=== PATIENT | female | born 1985 | race African-American/Black ===

== ENCOUNTER 2016-06-21 09:48 | Emergency (ER) | payer OTHER ==
[~2016-06-21] VITALS: Ht 160 cm; Wt 95.4 kg
[2016-06-21] MEDS ORDERED: RISP4 PO (09:53)
[2016-06-21] MEDS ORDERED: CITA20TA9 PO (09:53)
[2016-06-21] MEDS ORDERED: TRAZ-147 PO (09:53)
[2016-06-21] MEDS ORDERED: LORazepam 1 MG TABLET PO ONE (12:30)
[2016-06-21 14:10] VITALS: BP 125/71
== END 2016-06-21 14:55 | disposition home or self-care (01) ==
LOC: EMS 09:50
DX: F41.9 Anxiety disorder, unspecified (principal); F32.9 Major depressive disorder, single episode, unspecified
CPT/HCPCS: 99284

== ENCOUNTER 2018-06-14 01:45 | Emergency (ER) | payer OTHER ==
[~2018-06-14] VITALS: Ht 167.6 cm; Wt 81.8 kg
[~2018-06-14 01:45] MED LIST: CITA-106 PO; RISP4 PO; TRAZ-220 PO
[2018-06-14 01:52] VITALS: BP 131/96
[2018-06-14] MEDS ORDERED: OLAN10TA3 PO (02:07)
[2018-06-14] MEDS ORDERED: LURA20TA PO (02:07)
[2018-06-14 03:31] LABS: AMPHET/METH SCREEN,URINE POSITIVE (NEGATIVE); BARBITURATE SCREEN, URINE NEGATIVE (NEGATIVE); BENZODIAZEPINES SCREEN,URINE NEGATIVE (NEGATIVE); CANNABINOID SCREEN,URINE POSITIVE (NEGATIVE); COCAINE SCREEN,URINE NEGATIVE (NEGATIVE); METHADONE SCREEN, URINE NEGATIVE (NEGATIVE); OPIATE SCREEN,URINE NEGATIVE (NEGATIVE); PHENCYCLIDINE SCREEN,URINE NEGATIVE (NEGATIVE)
== END 2018-06-14 02:37 | disposition home or self-care (01) ==
LOC: EMS 01:47
DX: F32.9 Major depressive disorder, single episode, unspecified (principal); F41.9 Anxiety disorder, unspecified

== ENCOUNTER 2019-03-24 22:33 | Emergency (ER) | payer MEDICAID, OTHER ==
[~2019-03-24] VITALS: Ht 167.6 cm; Wt 101.5 kg
[~2019-03-24 22:33] MED LIST changes: -CITA-106 PO; +LURA20TA PO; +OLAN10TA3 PO; -RISP4 PO; -TRAZ-220 PO
[2019-03-24] MEDS ORDERED: SODIUM CHLORIDE 0.9% 1,000 ML IV ONE (23:15)
[2019-03-24] MEDS ORDERED: PB/HYOSCY/ATR/SCOP/LIDO/MAALOX 55 ML BOTTLE PO ONE (23:15)
[2019-03-24] MEDS ORDERED: FAMOTIDINE 10 MG/ML 2 ML VIAL IVP ONE (23:15)
[2019-03-24 23:31] LABS: BASOPHILS % (AUTO) 1.1 % (0.0-2.0); EOSINOPHILS % (AUTO) 2.7 % (1.0-6.0); HEMATOCRIT 36.6 % (36-46); HEMOGLOBIN 11.6 g/dL (12.0-16.0); LYMPHOCYTES # (AUTO) 3.3 K/uL (1.0-4.8); LYMPHOCYTES % (AUTO) 38.3 % (22.0-44.0); MEAN CORPUSCULAR HEMOGLOBIN 24.9 pg (26.0-34.0); MEAN CORPUSCULAR HGB CONC 31.7 G/dL (31.0-37.0); MEAN CORPUSCULAR VOLUME 79 fL (80-100); MONOCYTES # (AUTO) 0.8 K/uL (0.1-1.0); NEUTROPHILS # (AUTO) 4.1 K/uL (1.8-7.7); NEUTROPHILS % (AUTO) 47.9 % (40.0-70.0); PLATELET COUNT (AUTO) 280 K/uL (150-450); RED BLOOD CELL COUNT(AUTO) 4.65 MIL/uL (4.00-5.20); RED CELL DISTRIBUTION WIDTH 17.4 % (11.5-14.5)
[2019-03-24 23:48] LABS: ANION GAP 12 mmol/L (8-16); CALCIUM, TOTAL 9.3 mg/dL (8.8-10.5); CARBON DIOXIDE 25 mmol/L (22-29); CHLORIDE 107 mmol/L (98-107); GLOMERULAR FILTR. RATE CALC > 60 mL/min (>60); GLUCOSE,RANDOM 86 mg/dL (70-110); POTASSIUM 3.6 mmol/L (3.5-5.1); SODIUM SERUM 144 mmol/L (136-145); UREA NITROGEN, BLOOD 8 mg/dL (7-18)
[2019-03-24 23:54] LABS: ALANINE AMINOTRANSFERASE 25 U/L (12-78); ALBUMIN 3.5 g/dL (3.4-5.0); ALKALINE PHOSPHATASE 68 U/L (46-116); ASPARTATE AMINOTRANSFERASE 25 U/L (15-37); BILIRUBIN,TOTAL 0.2 mg/dL (0.1-1.0); LIPASE 202 U/L (73-393)
[2019-03-25 05:03] VITALS: BP 112/68
== END 2019-03-25 05:06 | disposition home or self-care (01) ==
LOC: EMS 22:35
DX: F32.9 Major depressive disorder, single episode, unspecified (principal); F41.9 Anxiety disorder, unspecified; Z79.899 Other long term (current) drug therapy

== ENCOUNTER 2020-04-17 10:44 | Inpatient (IN) | payer MEDICAID ==
[2020-04-17] MEDS ORDERED: ZOLPIDEM TARTRATE 10 MG TABLET PO PRN (11:00)
[2020-04-17] MEDS ORDERED: HALOPERIDOL 5 MG TABLET PO PRN (11:00)
[2020-04-17] MEDS ORDERED: GuaiFENesin/D-METHORPHAN [SUGAR-FREE] 200-20MG/10 ML SYRUP UDCUP PO PRN (16:15)
[2020-04-17] MEDS ORDERED: CloNIDine HCL 0.1 MG TABLET PO PRN (16:15)
[2020-04-17] MEDS ORDERED: ONDANSETRON HCL 4 MG TABLET PO PRN (16:15)
[2020-04-17] MEDS ORDERED: ACETAMINOPHEN 325 MG TABLET PO PRN (16:15)
[2020-04-17] MEDS ORDERED: PETROLATUM,WHITE 28 GM JELLY TP PRN (16:15)
[2020-04-17] MEDS ORDERED: IBUPROFEN 400 MG TABLET PO PRN (16:15)
[2020-04-17] MEDS ORDERED: MAGNESIUM HYDROXIDE SUSPENSION 30 ML UDCUP PO PRN (16:15)
[2020-04-17] MEDS ORDERED: MAG HYDROX/AL HYDROX/SIMETH ES 30 ML SUSPENSION UDCUP PO PRN (16:15)
[2020-04-17] MEDS ORDERED: DOCUSATE SODIUM 100 MG CAPSULE PO PRN (16:15)
[2020-04-17] MEDS ORDERED: LOPERAMIDE HCL 2 MG CAPSULE PO PRN (16:15)
[2020-04-17] MEDS ORDERED: NICOTINE 14 MG/24 HOUR PATCH TD PRN (16:15)
[2020-04-17] MEDS ORDERED: ALBUTEROL SULFATE HFA 90 MCG/PUFF 8 GM INHALER IH PRN (16:15)
[2020-04-17 16:37] VITALS: BP 116/77
[2020-04-17] MEDS: LORazepam 2 MG TABLET PO PRN (21:09)
[2020-04-18 05:58] VITALS: BP 129/65
[2020-04-18 08:18] LABS: BASOPHILS % (AUTO) 0.7 % (0.0-2.0); EOSINOPHILS % (AUTO) 7.8 % (1.0-6.0); HEMATOCRIT 38.1 % (36-46); HEMOGLOBIN 12.2 g/dL (12.0-16.0); LYMPHOCYTES # (AUTO) 2.1 K/uL (1.0-4.8); LYMPHOCYTES % (AUTO) 35.4 % (22.0-44.0); MEAN CORPUSCULAR HEMOGLOBIN 25.6 pg (26.0-34.0); MEAN CORPUSCULAR VOLUME 80 fL (80-100); MONOCYTES # (AUTO) 0.5 K/uL (0.1-1.0); MONOCYTES % (AUTO) 8.5 % (2.0-9.0); NEUTROPHILS # (AUTO) 2.8 K/uL (1.8-7.7); NEUTROPHILS % (AUTO) 47.6 % (40.0-70.0); PLATELET COUNT (AUTO) 270 K/uL (150-450); RED BLOOD CELL COUNT(AUTO) 4.75 MIL/uL (4.00-5.20); RED CELL DISTRIBUTION WIDTH 15.3 % (11.5-14.5)
[2020-04-18 08:30] LABS: HEMOGLOBIN A1C 5.7 % (3.8-5.6)
[2020-04-18 08:40] VITALS: BP 136/89
[2020-04-18 09:03] LABS: ALANINE AMINOTRANSFERASE 20 U/L (12-78); ALBUMIN 3.6 g/dL (3.4-5.0); ALKALINE PHOSPHATASE 69 U/L (46-116); ANION GAP 12 mmol/L (8-16); ASPARTATE AMINOTRANSFERASE 24 U/L (15-37); BILIRUBIN,TOTAL 0.4 mg/dL (0.1-1.0); CALCIUM, TOTAL 9.3 mg/dL (8.8-10.5); CARBON DIOXIDE 23 mmol/L (22-29); CHLORIDE 103 mmol/L (98-107); CHOL/HDL RATIO 4.3 (3.9-5.7); CHOLESTEROL 234 mg/dL (131-200); CREATININE 0.85 mg/dL (0.60-1.30); FREE T4 (FREE THYROXINE) 1.23 ng/dL (0.76-1.46); GLOMERULAR FILTR. RATE CALC > 60 mL/min (>60); GLUCOSE,RANDOM 71 mg/dL (70-110); HCG,QUANTITATIVE 3 mIU/mL (0-6); HDL CHOLESTEROL 55 mg/dL (40-60); LDL CHOL (CALC.) 164 mg/dL (0-130); POTASSIUM 3.8 mmol/L (3.5-5.1); SODIUM SERUM 138 mmol/L (136-145); THYROID STIMULATING HORMONE 1.13 uIU/mL (0.36-3.74); TOTAL PROTEIN, SERUM 8.2 g/dL (6.4-8.2); TRIGLYCERIDES 77 mg/dL (15-150); UREA NITROGEN, BLOOD 7 mg/dL (7-18)
[2020-04-18] MEDS: SERTRALINE HCL 50 MG TABLET PO SCH (12:24)
[2020-04-18] MEDS: OLANZapine 10 MG TABLET PO SCH (12:24)
[2020-04-18 16:15] VITALS: BP 146/89
[2020-04-18] MEDS: LORazepam 2 MG TABLET PO PRN (18:24)
[2020-04-19 00:27] VITALS: BP 123/70
[2020-04-19 08:34] VITALS: BP 146/92
[2020-04-19] MEDS: SERTRALINE HCL 50 MG TABLET PO SCH (08:47)
[2020-04-19] MEDS: OLANZapine 10 MG TABLET PO SCH (08:52)
[2020-04-19 17:34] VITALS: BP 125/79
[2020-04-19] MEDS ORDERED: OLANZapine 10 MG TABLET PO SCH (21:00)
[2020-04-20 06:23] VITALS: BP 116/74
[2020-04-20] MEDS: SERTRALINE HCL 50 MG TABLET PO SCH (08:18)
[2020-04-20 08:30] VITALS: BP 135/90
[2020-04-20] MEDS ORDERED: OLAN10TA3 PO (11:46)
[2020-04-20] MEDS ORDERED: SERT-158 PO (11:56)
== END 2020-04-20 12:30 | disposition home or self-care (01) | DRG 751 ==
LOC: B2S 12:47
PROVIDERS: ADMIT Psychiatry & Neurology Child & Adolescent Psychiatry; ATTEND Psychiatry & Neurology Child & Adolescent Psychiatry
DX: F33.2 Major depressive disorder, recurrent severe without psychotic features (principal); F15.10 Other stimulant abuse, uncomplicated; E78.5 Hyperlipidemia, unspecified; F41.9 Anxiety disorder, unspecified; R10.13 Epigastric pain; F10.10 Alcohol abuse, uncomplicated; Z79.899 Other long term (current) drug therapy
CPT/HCPCS: 83036; 84436; 84439; 84443

== ENCOUNTER 2020-06-23 21:18 | Emergency (ER) | payer MEDICAID ==
[~2020-06-23] VITALS: Ht 167.6 cm; Wt 11.4 kg
[~2020-06-23 21:18] MED LIST changes: -LURA20TA PO; +SERT-158 PO
[2020-06-23 22:03] LABS: COVID AG,FIA SOURCE NASOPHARYNGEAL
[2020-06-23 22:14] LABS: AMPHET/METH SCREEN,URINE POSITIVE (NEGATIVE); BARBITURATE SCREEN, URINE NEGATIVE (NEGATIVE); BENZODIAZEPINES SCREEN,URINE NEGATIVE (NEGATIVE); CANNABINOID SCREEN,URINE POSITIVE (NEGATIVE); COCAINE SCREEN,URINE NEGATIVE (NEGATIVE); METHADONE SCREEN, URINE NEGATIVE (NEGATIVE); OPIATE SCREEN,URINE NEGATIVE (NEGATIVE)
[2020-06-23 22:16] LABS: PHENCYCLIDINE SCREEN,URINE NEGATIVE (NEGATIVE)
[2020-06-23 23:40] VITALS: BP 122/84
== END 2020-06-24 00:07 | disposition home or self-care (01) ==
LOC: EMS 21:20
DX: F32.9 Major depressive disorder, single episode, unspecified (principal); F41.9 Anxiety disorder, unspecified; Z20.822 Contact with and (suspected) exposure to COVID-19
CPT/HCPCS: 84703; 87426; 99284

== ENCOUNTER 2020-09-12 00:59 | Emergency (ER) | payer MEDICAID ==
[~2020-09-12] VITALS: Ht 167.6 cm; Wt 104.5 kg
[~2020-09-12 00:59] MED LIST changes: -OLAN10TA3 PO; +OLAN10TA74 PO
[2020-09-12 02:21] LABS: COVID AG,FIA SOURCE NASOPHARYNGEAL
[2020-09-12 02:23] LABS: BASOPHILS % (AUTO) 0.9 % (0.0-2.0); EOSINOPHILS % (AUTO) 3.1 % (1.0-6.0); HEMATOCRIT 37.3 % (36-46); HEMOGLOBIN 11.9 g/dL (12.0-16.0); LYMPHOCYTES # (AUTO) 2.2 K/uL (1.0-4.8); LYMPHOCYTES % (AUTO) 37.7 % (22.0-44.0); MEAN CORPUSCULAR VOLUME 78 fL (80-100); MONOCYTES # (AUTO) 0.8 K/uL (0.1-1.0); MONOCYTES % (AUTO) 14.6 % (2.0-9.0); NEUTROPHILS # (AUTO) 2.5 K/uL (1.8-7.7); NEUTROPHILS % (AUTO) 43.7 % (40.0-70.0); PLATELET COUNT (AUTO) 274 K/uL (150-450); RED BLOOD CELL COUNT(AUTO) 4.77 MIL/uL (4.00-5.20); RED CELL DISTRIBUTION WIDTH 16.6 % (11.5-14.5)
[2020-09-12 02:46] LABS: APPEARANCE,URINE CLEAR (CLEAR); GLUCOSE, URINE (UA) NEGATIVE (NEGATIVE); KETONES,URINE TRACE mg/dL (NEGATIVE); LEUKOCYTE ESTERASE ,URINE NEGATIVE (NEGATIVE); NITRATE,URINE NEGATIVE (NEGATIVE); OCCULT BLOOD,URINE NEGATIVE (NEGATIVE); PROTEIN,URINE TRACE (NEGATIVE)
[2020-09-12 02:50] LABS: AMPHET/METH SCREEN,URINE NEGATIVE (NEGATIVE); BARBITURATE SCREEN, URINE NEGATIVE (NEGATIVE); BENZODIAZEPINES SCREEN,URINE NEGATIVE (NEGATIVE); BILIRUBIN,URINE PRELIM. POSITIVE (NEGATIVE); CANNABINOID SCREEN,URINE POSITIVE (NEGATIVE); COCAINE SCREEN,URINE NEGATIVE (NEGATIVE); METHADONE SCREEN, URINE NEGATIVE (NEGATIVE); OPIATE SCREEN,URINE NEGATIVE (NEGATIVE)
[2020-09-12 02:51] LABS: PHENCYCLIDINE SCREEN,URINE NEGATIVE (NEGATIVE)
[2020-09-12 02:54] LABS: ALANINE AMINOTRANSFERASE 37 U/L (12-78); ALBUMIN 3.7 g/dL (3.4-5.0); ALKALINE PHOSPHATASE 94 U/L (46-116); ANION GAP 8 mmol/L (8-16); ASPARTATE AMINOTRANSFERASE 34 U/L (15-37); BILIRUBIN,TOTAL 0.3 mg/dL (0.1-1.0); CALCIUM, TOTAL 9.3 mg/dL (8.8-10.5); CARBON DIOXIDE 27 mmol/L (22-29); CHLORIDE 102 mmol/L (98-107); CREATININE 0.76 mg/dL (0.60-1.30); GLOMERULAR FILTR. RATE CALC > 60 mL/min (>60); GLUCOSE,RANDOM 92 mg/dL (70-110); HCG,QUANTITATIVE < 1 mIU/mL (0-6); SODIUM SERUM 137 mmol/L (136-145); UREA NITROGEN, BLOOD 9 mg/dL (7-18)
[2020-09-12 03:00] LABS: BACTERIA,URINE Few /HPF (None Seen); MUCUS,URINE Moderate LPF (None Seen); RBC,URINE 0-2 /HPF (0-2); SQUAMOUS EPITHELIAL CELL,UR Many /LPF (None Seen); WBC,URINE 0-2 /HPF (0-5)
[2020-09-12] MEDS ORDERED: POTASSIUM CHLORIDE 20 MEQ ER TABLET PO ONE (03:15)
[2020-09-12 03:45] VITALS: BP 128/85
== END 2020-09-12 03:51 ==
LOC: EMS 01:01
DX: F41.9 Anxiety disorder, unspecified (principal); F32.9 Major depressive disorder, single episode, unspecified; Z79.899 Other long term (current) drug therapy; Z20.822 Contact with and (suspected) exposure to COVID-19
CPT/HCPCS: 36415; 80053; 80307; 81001; 84702; 85025; 87426; 99283; G0480

== ENCOUNTER 2020-10-11 15:51 | Inpatient (IN) | payer MEDICAID ==
[~2020-10-11] VITALS: Ht 165.1 cm; Wt 51.9 kg
[2020-10-11] MEDS ORDERED: HALOPERIDOL 5 MG TABLET PO PRN (16:45)
[2020-10-11] MEDS ORDERED: LORazepam 2 MG TABLET PO PRN (16:45)
[2020-10-11] MEDS ORDERED: ZOLPIDEM TARTRATE 10 MG TABLET PO PRN (16:45)
[2020-10-11 17:03] LABS: GLUCOMETER DEV NAME(LOC) POC.BV
[2020-10-11 17:38] VITALS: BP 88/44
[2020-10-11] MEDS: OLANZapine 10 MG TABLET PO SCH (20:25)
[2020-10-11 21:43] VITALS: BP 135/76
[2020-10-12 06:18] VITALS: BP 142/89
[2020-10-12 08:11] LABS: BASOPHILS % (AUTO) 0.7 % (0.0-2.0); EOSINOPHILS % (AUTO) 6.6 % (1.0-6.0); HEMATOCRIT 38.3 % (36-46); HEMOGLOBIN 12.1 g/dL (12.0-16.0); LYMPHOCYTES # (AUTO) 3.1 K/uL (1.0-4.8); MEAN CORPUSCULAR HEMOGLOBIN 25.1 pg (26.0-34.0); MEAN CORPUSCULAR HGB CONC 31.6 G/dL (31.0-37.0); MEAN CORPUSCULAR VOLUME 80 fL (80-100); MONOCYTES # (AUTO) 0.4 K/uL (0.1-1.0); MONOCYTES % (AUTO) 7.4 % (2.0-9.0); NEUTROPHILS # (AUTO) 1.7 K/uL (1.8-7.7); NEUTROPHILS % (AUTO) 30.3 % (40.0-70.0); PLATELET COUNT (AUTO) 251 K/uL (150-450); RED BLOOD CELL COUNT(AUTO) 4.82 MIL/uL (4.00-5.20); RED CELL DISTRIBUTION WIDTH 17.5 % (11.5-14.5)
[2020-10-12 08:21] LABS: HEMOGLOBIN A1C 5.6 % (3.8-5.6)
[2020-10-12 08:24] VITALS: BP 137/83
[2020-10-12] MEDS ORDERED: MAG HYDROX/AL HYDROX/SIMETH ES 30 ML SUSPENSION UDCUP PO PRN (08:30)
[2020-10-12] MEDS ORDERED: ALBUTEROL SULFATE HFA 90 MCG/PUFF 8 GM INHALER IH PRN (08:30)
[2020-10-12] MEDS ORDERED: IBUPROFEN 400 MG TABLET PO PRN (08:30)
[2020-10-12] MEDS ORDERED: GuaiFENesin/D-METHORPHAN [SUGAR-FREE] 200-20MG/10 ML SYRUP UDCUP PO PRN (08:30)
[2020-10-12] MEDS ORDERED: ONDANSETRON HCL 4 MG TABLET PO PRN (08:30)
[2020-10-12] MEDS ORDERED: CloNIDine HCL 0.1 MG TABLET PO PRN (08:30)
[2020-10-12] MEDS ORDERED: PETROLATUM,WHITE 28 GM JELLY TP PRN (08:30)
[2020-10-12] MEDS ORDERED: NICOTINE 14 MG/24 HOUR PATCH TD PRN (08:30)
[2020-10-12] MEDS ORDERED: ACETAMINOPHEN 325 MG TABLET PO PRN (08:30)
[2020-10-12] MEDS ORDERED: LOPERAMIDE HCL 2 MG CAPSULE PO PRN (08:30)
[2020-10-12] MEDS ORDERED: DOCUSATE SODIUM 100 MG CAPSULE PO PRN (08:30)
[2020-10-12] MEDS ORDERED: MAGNESIUM HYDROXIDE SUSPENSION 30 ML UDCUP PO PRN (08:30)
[2020-10-12] MEDS: SERTRALINE HCL 50 MG TABLET PO SCH (08:43)
[2020-10-12 09:24] LABS: ALANINE AMINOTRANSFERASE 19 U/L (12-78); ALKALINE PHOSPHATASE 75 U/L (46-116); ANION GAP 8 mmol/L (8-16); ASPARTATE AMINOTRANSFERASE 23 U/L (15-37); BILIRUBIN,TOTAL 0.3 mg/dL (0.1-1.0); CALCIUM, TOTAL 8.4 mg/dL (8.8-10.5); CARBON DIOXIDE 23 mmol/L (22-29); CHLORIDE 106 mmol/L (98-107); CHOLESTEROL 195 mg/dL (131-200); CREATININE 0.62 mg/dL (0.60-1.30); GLOMERULAR FILTR. RATE CALC > 60 mL/min (>60); GLUCOSE,RANDOM 73 mg/dL (70-110); HCG,QUANTITATIVE < 1 mIU/mL (0-6); HDL CHOLESTEROL 49 mg/dL (40-60); LDL CHOL (CALC.) 132 mg/dL (0-130); POTASSIUM 3.5 mmol/L (3.5-5.1); SODIUM SERUM 137 mmol/L (136-145); THYROID STIMULATING HORMONE 0.64 uIU/mL (0.36-3.74); TOTAL PROTEIN, SERUM 6.6 g/dL (6.4-8.2); TRIGLYCERIDES 72 mg/dL (15-150); UREA NITROGEN, BLOOD 7 mg/dL (7-18)
[2020-10-12] MEDS ORDERED: SERTRALINE HCL 50 MG TABLET PO SCH (10:45)
[2020-10-12 16:09] VITALS: BP 134/72
[2020-10-12] MEDS: OLANZapine 10 MG TABLET PO SCH (20:06)
[2020-10-12] MEDS ORDERED: OLANZapine 10 MG TABLET PO SCH (21:00)
[2020-10-13 06:14] VITALS: BP 151/93
[2020-10-13] MEDS: SERTRALINE HCL 50 MG TABLET PO SCH (08:25)
[2020-10-13 08:46] VITALS: BP 115/61
== END 2020-10-13 13:00 | disposition home or self-care (01) | DRG 750 ==
LOC: B2S 16:58
PROVIDERS: ADMIT Psychiatry & Neurology Child & Adolescent Psychiatry; ATTEND Psychiatry & Neurology Child & Adolescent Psychiatry
DX: F25.1 Schizoaffective disorder, depressive type (principal); E78.5 Hyperlipidemia, unspecified; F10.10 Alcohol abuse, uncomplicated; I10 Essential (primary) hypertension; Z20.822 Contact with and (suspected) exposure to COVID-19; F41.9 Anxiety disorder, unspecified
CPT/HCPCS: 80053; 80061; 83036; 84439; 84443; 84702; 85025

== ENCOUNTER 2020-10-20 14:41 | Inpatient (IN) | payer MEDICAID ==
[~2020-10-20] VITALS: Ht 165.1 cm; Wt 116.7 kg
[2020-10-20] MEDS ORDERED: HALOPERIDOL 5 MG TABLET PO PRN (18:15)
[2020-10-20] MEDS ORDERED: ZOLPIDEM TARTRATE 10 MG TABLET PO PRN (18:15)
[2020-10-20 19:05] VITALS: BP 142/92
[2020-10-20] MEDS: LORazepam 2 MG TABLET PO PRN (19:41)
[2020-10-21 01:14] VITALS: BP 132/88
[2020-10-21 07:11] LABS: BASOPHILS % (AUTO) 1.3 % (0.0-2.0); HEMATOCRIT 38.4 % (36-46); HEMOGLOBIN 12.2 g/dL (12.0-16.0); LYMPHOCYTES # (AUTO) 2.3 K/uL (1.0-4.8); LYMPHOCYTES % (AUTO) 37.4 % (22.0-44.0); MEAN CORPUSCULAR HEMOGLOBIN 25.2 pg (26.0-34.0); MEAN CORPUSCULAR HGB CONC 31.9 G/dL (31.0-37.0); MEAN CORPUSCULAR VOLUME 79 fL (80-100); MONOCYTES # (AUTO) 0.5 K/uL (0.1-1.0); MONOCYTES % (AUTO) 7.4 % (2.0-9.0); NEUTROPHILS # (AUTO) 2.9 K/uL (1.8-7.7); NEUTROPHILS % (AUTO) 46.9 % (40.0-70.0); PLATELET COUNT (AUTO) 254 K/uL (150-450); RED BLOOD CELL COUNT(AUTO) 4.87 MIL/uL (4.00-5.20); RED CELL DISTRIBUTION WIDTH 17.2 % (11.5-14.5)
[2020-10-21 07:21] LABS: HEMOGLOBIN A1C 5.6 % (3.8-5.6)
[2020-10-21 07:50] LABS: ALANINE AMINOTRANSFERASE 29 U/L (12-78); ALBUMIN 3.3 g/dL (3.4-5.0); ALKALINE PHOSPHATASE 73 U/L (46-116); ANION GAP 11 mmol/L (8-16); ASPARTATE AMINOTRANSFERASE 21 U/L (15-37); BILIRUBIN,TOTAL 0.2 mg/dL (0.1-1.0); CALCIUM, TOTAL 8.7 mg/dL (8.8-10.5); CARBON DIOXIDE 23 mmol/L (22-29); CHLORIDE 105 mmol/L (98-107); CHOL/HDL RATIO 3.8 (3.9-5.7); CHOLESTEROL 176 mg/dL (131-200); CREATININE 0.58 mg/dL (0.60-1.30); FREE T4 (FREE THYROXINE) 0.93 ng/dL (0.76-1.46); GLOMERULAR FILTR. RATE CALC > 60 mL/min (>60); GLUCOSE,RANDOM 83 mg/dL (70-110); HCG,QUANTITATIVE < 1 mIU/mL (0-6); HDL CHOLESTEROL 46 mg/dL (40-60); LDL CHOL (CALC.) 116 mg/dL (0-130); POTASSIUM 4.4 mmol/L (3.5-5.1); SODIUM SERUM 139 mmol/L (136-145); THYROID STIMULATING HORMONE 0.35 uIU/mL (0.36-3.74); TOTAL PROTEIN, SERUM 6.7 g/dL (6.4-8.2); TRIGLYCERIDES 72 mg/dL (15-150); UREA NITROGEN, BLOOD 7 mg/dL (7-18)
[2020-10-21 08:07] VITALS: BP 150/94
[2020-10-21] MEDS ORDERED: DOCUSATE SODIUM 100 MG CAPSULE PO PRN (08:30)
[2020-10-21] MEDS ORDERED: CloNIDine HCL 0.1 MG TABLET PO PRN (08:30)
[2020-10-21] MEDS ORDERED: MAGNESIUM HYDROXIDE SUSPENSION 30 ML UDCUP PO PRN (08:30)
[2020-10-21] MEDS ORDERED: PETROLATUM,WHITE 28 GM JELLY TP PRN (08:30)
[2020-10-21] MEDS ORDERED: MAG HYDROX/AL HYDROX/SIMETH ES 30 ML SUSPENSION UDCUP PO PRN (08:30)
[2020-10-21] MEDS ORDERED: NICOTINE 14 MG/24 HOUR PATCH TD PRN (08:30)
[2020-10-21] MEDS ORDERED: ACETAMINOPHEN 325 MG TABLET PO PRN (08:30)
[2020-10-21] MEDS ORDERED: GuaiFENesin/D-METHORPHAN [SUGAR-FREE] 200-20MG/10 ML SYRUP UDCUP PO PRN (08:30)
[2020-10-21] MEDS ORDERED: ONDANSETRON HCL 4 MG TABLET PO PRN (08:30)
[2020-10-21] MEDS ORDERED: LOPERAMIDE HCL 2 MG CAPSULE PO PRN (08:30)
[2020-10-21] MEDS ORDERED: ALBUTEROL SULFATE HFA 90 MCG/PUFF 8 GM INHALER IH PRN (08:30)
[2020-10-21] MEDS ORDERED: IBUPROFEN 400 MG TABLET PO PRN (08:30)
[2020-10-21] MEDS: LORazepam 2 MG TABLET PO PRN (14:35)
[2020-10-21 15:56] VITALS: BP 121/86
[2020-10-21 16:15] VITALS: BP 121/86
[2020-10-21] MEDS: OLANZapine 10 MG TABLET PO SCH (20:15)
[2020-10-21] MEDS ORDERED: SERTRALINE HCL 50 MG TABLET PO SCH (21:00)
[2020-10-22 00:24] VITALS: BP 114/76
[2020-10-22 07:18] LABS: AMPHET/METH SCREEN,URINE NEGATIVE (NEGATIVE); BARBITURATE SCREEN, URINE NEGATIVE (NEGATIVE); BENZODIAZEPINES SCREEN,URINE NEGATIVE (NEGATIVE); CANNABINOID SCREEN,URINE POSITIVE (NEGATIVE); COCAINE SCREEN,URINE NEGATIVE (NEGATIVE); METHADONE SCREEN, URINE NEGATIVE (NEGATIVE); OPIATE SCREEN,URINE NEGATIVE (NEGATIVE)
[2020-10-22 07:20] LABS: PHENCYCLIDINE SCREEN,URINE NEGATIVE (NEGATIVE)
[2020-10-22 07:22] LABS: APPEARANCE,URINE CLEAR (CLEAR); BILIRUBIN,URINE NEGATIVE (NEGATIVE); GLUCOSE, URINE (UA) NEGATIVE (NEGATIVE); KETONES,URINE NEGATIVE (NEGATIVE); LEUKOCYTE ESTERASE ,URINE NEGATIVE (NEGATIVE); NITRATE,URINE NEGATIVE (NEGATIVE); OCCULT BLOOD,URINE NEGATIVE (NEGATIVE); PROTEIN,URINE NEGATIVE (NEGATIVE); UROBILINOGEN,URINE 0.2 mg/dL (<=1.0)
[2020-10-22 08:06] VITALS: BP 116/56
[2020-10-22 16:23] VITALS: BP 128/65
[2020-10-22] MEDS: OLANZapine 10 MG TABLET PO SCH (20:06)
[2020-10-23 04:17] VITALS: BP 116/62
[2020-10-23 08:51] VITALS: BP 138/72
[2020-10-23] MEDS ORDERED: SERTRALINE HCL 50 MG TABLET PO SCH (09:00)
== END 2020-10-23 11:56 | disposition home or self-care (01) | DRG 751 ==
LOC: B3A 18:12
PROVIDERS: ADMIT Psychiatry & Neurology Child & Adolescent Psychiatry; ATTEND Psychiatry & Neurology Child & Adolescent Psychiatry
DX: F33.3 Major depressive disorder, recurrent, severe with psychotic symptoms (principal); R45.851 Suicidal ideations; E66.9 Obesity, unspecified; F41.9 Anxiety disorder, unspecified; I10 Essential (primary) hypertension; F10.10 Alcohol abuse, uncomplicated; F19.10 Other psychoactive substance abuse, uncomplicated; Z68.41 Body mass index [BMI] 40.0-44.9, adult
CPT/HCPCS: 80053; 80061; 80307; 81003; 83036; 84439; 84443; 84702; 85025; 87081

== ENCOUNTER 2021-07-06 17:55 | Inpatient (IN) | payer MEDICAID ==
[~2021-07-06] VITALS: Ht 167.6 cm; Wt 108.9 kg
[2021-07-06] MEDS ORDERED: OLANZapine 5 MG RAPDIS TABLET PO PRN (20:15)
[2021-07-06] MEDS ORDERED: ACETAMINOPHEN 325 MG TABLET PO PRN (20:15)
[2021-07-06] MEDS ORDERED: LOPERAMIDE HCL 2 MG CAPSULE PO PRN (20:15)
[2021-07-06] MEDS ORDERED: MAGNESIUM HYDROXIDE SUSPENSION 30 ML UDCUP PO PRN (20:15)
[2021-07-06] MEDS ORDERED: LORazepam 2 MG TABLET PO PRN (20:15)
[2021-07-06] MEDS ORDERED: TUBERCULIN, PURIFIED PROTEIN DERIVATIVE 5 TU/0.1 ML SYRINGE ID ONE (20:15)
[2021-07-06] MEDS ORDERED: MAG HYDROX/AL HYDROX/SIMETH ES 30 ML SUSPENSION UDCUP PO PRN (20:15)
[2021-07-06] MEDS ORDERED: PROMETHAZINE HCL 25 MG TABLET PO PRN (20:15)
[2021-07-06] MEDS ORDERED: GuaiFENesin/D-METHORPHAN [SUGAR-FREE] 200-20MG/10 ML SYRUP UDCUP PO PRN (20:15)
[2021-07-06] MEDS ORDERED: ZOLPIDEM TARTRATE 10 MG TABLET PO PRN (20:15)
[2021-07-06] MEDS ORDERED: HydrOXYzine PAMOATE 50 MG CAPSULE PO PRN (20:15)
[2021-07-06] MEDS ORDERED: OLANZapine 5 MG RAPDIS TABLET PO SCH (21:00)
[2021-07-06] MEDS: MELATONIN 5 MG TABLET PO SCH (21:00)
[2021-07-06 21:30] VITALS: BP 110/78
[2021-07-07 00:15] VITALS: BP 112/76
[2021-07-07] MEDS: FLUoxetine HCL 20 MG CAPSULE PO SCH (09:00)
[2021-07-07] MEDS: NALTREXONE HCL 50 MG TABLET PO SCH (09:00)
[2021-07-07] MEDS: FOLIC ACID 1 MG TABLET PO SCH (09:00)
[2021-07-07] MEDS: MULTIVITAMINS WITH MINERALS, THERAPEUTIC TABLET PO SCH (09:00)
[2021-07-07] MEDS: OMEGA-3/DHA/EPA/FISH OIL 1,000 MG CAPSULE PO SCH (09:00)
[2021-07-07] MEDS: THIAMINE 100 MG TABLET PO SCH ×2 (09:00→16:53)
[2021-07-07 09:08] VITALS: BP 147/81
[2021-07-07 16:16] VITALS: BP 125/66
[2021-07-07] MEDS: OLANZapine 10 MG RAPDIS TABLET PO SCH (20:20)
[2021-07-07] MEDS ORDERED: SERTRALINE HCL 50 MG TABLET PO SCH (21:00)
[2021-07-07] MEDS: MELATONIN 5 MG TABLET PO SCH (21:00)
[2021-07-08 05:16] VITALS: BP 114/71
[2021-07-08] MEDS: OMEGA-3/DHA/EPA/FISH OIL 1,000 MG CAPSULE PO SCH (08:04)
[2021-07-08] MEDS: FLUoxetine HCL 20 MG CAPSULE PO SCH (08:04)
[2021-07-08] MEDS: FOLIC ACID 1 MG TABLET PO SCH (08:04)
[2021-07-08] MEDS: NALTREXONE HCL 50 MG TABLET PO SCH (08:05)
[2021-07-08] MEDS: MULTIVITAMINS WITH MINERALS, THERAPEUTIC TABLET PO SCH (08:05)
[2021-07-08] MEDS: THIAMINE 100 MG TABLET PO SCH ×2 (08:05→17:00)
[2021-07-08 08:21] VITALS: BP 116/73
[2021-07-08] MEDS ORDERED: SERTRALINE HCL 50 MG TABLET PO ONE (15:00)
[2021-07-08 16:06] VITALS: BP 129/90
[2021-07-08] MEDS: MELATONIN 5 MG TABLET PO SCH (20:30)
[2021-07-08] MEDS: OLANZapine 10 MG RAPDIS TABLET PO SCH (20:30)
[2021-07-09 05:38] VITALS: BP 156/97
[2021-07-09 08:11] VITALS: BP 118/72
[2021-07-09] MEDS: SERTRALINE HCL 50 MG TABLET PO SCH (08:16)
[2021-07-09] MEDS: FOLIC ACID 1 MG TABLET PO SCH (08:16)
[2021-07-09] MEDS: OMEGA-3/DHA/EPA/FISH OIL 1,000 MG CAPSULE PO SCH (08:16)
[2021-07-09] MEDS: NALTREXONE HCL 50 MG TABLET PO SCH (08:17)
[2021-07-09] MEDS: THIAMINE 100 MG TABLET PO SCH ×2 (08:17→17:00)
[2021-07-09] MEDS: MULTIVITAMINS WITH MINERALS, THERAPEUTIC TABLET PO SCH (08:17)
[2021-07-09 16:10] VITALS: BP 134/85
[2021-07-09] MEDS ORDERED: LOPERAMIDE HCL 2 MG CAPSULE PO PRN (20:15)
[2021-07-09] MEDS: OLANZapine 10 MG RAPDIS TABLET PO SCH (20:32)
[2021-07-09] MEDS: MELATONIN 5 MG TABLET PO SCH (20:32)
[2021-07-10 04:10] VITALS: BP 131/75
[2021-07-10 08:08] VITALS: BP 150/83
[2021-07-10] MEDS: SERTRALINE HCL 50 MG TABLET PO SCH (08:17)
[2021-07-10] MEDS: MULTIVITAMINS WITH MINERALS, THERAPEUTIC TABLET PO SCH (08:20)
[2021-07-10] MEDS: NALTREXONE HCL 50 MG TABLET PO SCH (08:20)
[2021-07-10] MEDS: FOLIC ACID 1 MG TABLET PO SCH (08:20)
[2021-07-10] MEDS: THIAMINE 100 MG TABLET PO SCH ×2 (08:20→16:21)
[2021-07-10] MEDS: OMEGA-3/DHA/EPA/FISH OIL 1,000 MG CAPSULE PO SCH (08:20)
[2021-07-10] MEDS ORDERED: MELA5TAB40 PO (13:46)
[2021-07-10] MEDS ORDERED: OMEG-108 PO (13:46)
[2021-07-10] MEDS ORDERED: OLAN10TA26 PO (13:46)
[2021-07-10] MEDS ORDERED: NALT50TA PO (13:46)
[2021-07-10] MEDS ORDERED: SERT-439 PO (13:46)
== END 2021-07-10 17:00 | disposition home or self-care (01) | DRG 750 ==
LOC: B3A 18:34
PROVIDERS: ADMIT Psychiatry & Neurology Psychiatry; ATTEND Psychiatry & Neurology Psychiatry
DX: F25.9 Schizoaffective disorder, unspecified (principal); Z59.00 Homelessness unspecified; F60.0 Paranoid personality disorder; Z20.822 Contact with and (suspected) exposure to COVID-19; I10 Essential (primary) hypertension; Z55.9 Problems related to education and literacy, unspecified; Z91.19 Patient's noncompliance with other medical treatment and regimen; Z63.9 Problem related to primary support group, unspecified; Z65.3 Problems related to other legal circumstances
CPT/HCPCS: Q9967

== ENCOUNTER 2021-07-16 10:09 | Inpatient (IN) | payer MEDICAID ==
[~2021-07-16] VITALS: Ht 167.6 cm; Wt 109.9 kg
[~2021-07-16 10:09] MED LIST changes: +MELA5TAB40 PO; +NALT50TA PO; +OLAN10TA26 PO; -OLAN10TA74 PO; +OMEG-108 PO; -SERT-158 PO; +SERT-439 PO
[2021-07-16] MEDS ORDERED: ZOLPIDEM TARTRATE 10 MG TABLET PO PRN (10:15)
[2021-07-16] MEDS ORDERED: HALOPERIDOL 5 MG TABLET PO PRN (10:15)
[2021-07-16] MEDS: LORazepam 2 MG TABLET PO PRN (14:31)
[2021-07-16 16:16] VITALS: BP 145/97
[2021-07-16] MEDS ORDERED: MAGNESIUM HYDROXIDE SUSPENSION 30 ML UDCUP PO PRN (17:00)
[2021-07-16] MEDS ORDERED: BACITRACIN 28 GM OINTMENT TP PRN (17:00)
[2021-07-16] MEDS ORDERED: CloNIDine HCL 0.1 MG TABLET PO PRN (17:00)
[2021-07-16] MEDS ORDERED: MAG HYDROX/AL HYDROX/SIMETH ES 30 ML SUSPENSION UDCUP PO PRN (17:00)
[2021-07-16] MEDS ORDERED: IBUPROFEN 600 MG TABLET PO PRN (17:00)
[2021-07-16] MEDS ORDERED: ALBUTEROL SULFATE HFA 90 MCG/PUFF 8 GM INHALER IH PRN (17:00)
[2021-07-16] MEDS ORDERED: ONDANSETRON HCL 4 MG TABLET PO PRN (17:00)
[2021-07-16] MEDS ORDERED: ACETAMINOPHEN 325 MG TABLET PO PRN (17:00)
[2021-07-16] MEDS ORDERED: LOPERAMIDE HCL 2 MG CAPSULE PO PRN (17:00)
[2021-07-16] MEDS ORDERED: DOCUSATE SODIUM 100 MG CAPSULE PO PRN (17:00)
[2021-07-16] MEDS ORDERED: OMEPRAZOLE 20 MG CAPSULE PO PRN (17:00)
[2021-07-16] MEDS ORDERED: BENZOCAINE/MENTHOL LOZENGE PO PRN (17:00)
[2021-07-16] MEDS ORDERED: PETROLATUM,WHITE 28 GM JELLY TP PRN (17:00)
[2021-07-17 01:28] VITALS: BP 144/90
[2021-07-17] MEDS: LORazepam 2 MG TABLET PO PRN ×3 (03:20→12:43)
[2021-07-17 07:15] VITALS: BP 126/85
[2021-07-17 08:14] VITALS: BP 129/83
[2021-07-17] MEDS: OMEGA-3/DHA/EPA/FISH OIL 1,000 MG CAPSULE PO SCH (08:29)
[2021-07-17] MEDS: DIVALPROEX SODIUM 500 MG DR TABLET PO SCH ×2 (10:00→16:09)
[2021-07-17] MEDS: OLANZapine 10 MG TABLET PO SCH (20:04)
[2021-07-18 00:12] VITALS: BP 123/77
[2021-07-18] MEDS: OMEGA-3/DHA/EPA/FISH OIL 1,000 MG CAPSULE PO SCH (08:35)
[2021-07-18] MEDS: DIVALPROEX SODIUM 500 MG DR TABLET PO SCH ×2 (08:35→16:18)
[2021-07-18 18:15] VITALS: BP 137/92
[2021-07-18] MEDS: OLANZapine 10 MG TABLET PO SCH (21:12)
[2021-07-18] MEDS: FLUTICASONE PROPIONATE 50 MCG/SPRAY 16 GM NASAL SPRAY NASAL SCH ×2 (21:12→21:20)
[2021-07-19 06:39] VITALS: BP 126/78
[2021-07-19] MEDS: OMEGA-3/DHA/EPA/FISH OIL 1,000 MG CAPSULE PO SCH (08:52)
[2021-07-19] MEDS: DIVALPROEX SODIUM 500 MG DR TABLET PO SCH ×2 (08:52→16:16)
[2021-07-19] MEDS: SERTRALINE HCL 50 MG TABLET PO SCH (11:02)
[2021-07-19] MEDS: LORazepam 2 MG TABLET PO PRN (12:11)
[2021-07-19] MEDS: OLANZapine 10 MG TABLET PO SCH (20:12)
[2021-07-19] MEDS: FLUTICASONE PROPIONATE 50 MCG/SPRAY 16 GM NASAL SPRAY NASAL SCH (20:15)
[2021-07-20 03:00] VITALS: BP 114/85
[2021-07-20] MEDS: SERTRALINE HCL 50 MG TABLET PO SCH (08:04)
[2021-07-20] MEDS: LORazepam 2 MG TABLET PO PRN ×2 (08:05→13:29)
[2021-07-20] MEDS: OMEGA-3/DHA/EPA/FISH OIL 1,000 MG CAPSULE PO SCH (09:00)
[2021-07-20] MEDS: DIVALPROEX SODIUM 500 MG DR TABLET PO SCH ×2 (09:00→16:21)
[2021-07-20 16:10] VITALS: BP 141/92
[2021-07-20] MEDS: FLUTICASONE PROPIONATE 50 MCG/SPRAY 16 GM NASAL SPRAY NASAL SCH (20:25)
[2021-07-20] MEDS: OLANZapine 10 MG TABLET PO SCH (20:25)
[2021-07-21 00:36] VITALS: BP 134/82
[2021-07-21] MEDS: DIVALPROEX SODIUM 500 MG DR TABLET PO SCH ×2 (08:50→17:00)
[2021-07-21] MEDS: OMEGA-3/DHA/EPA/FISH OIL 1,000 MG CAPSULE PO SCH (08:51)
[2021-07-21] MEDS: SERTRALINE HCL 50 MG TABLET PO SCH (08:51)
[2021-07-21 17:13] VITALS: BP 148/89
[2021-07-21] MEDS: OLANZapine 10 MG TABLET PO SCH (20:47)
[2021-07-21] MEDS: FLUTICASONE PROPIONATE 50 MCG/SPRAY 16 GM NASAL SPRAY NASAL SCH (20:47)
[2021-07-22 00:33] VITALS: BP 136/81
[2021-07-22] MEDS: DIVALPROEX SODIUM 500 MG DR TABLET PO SCH (08:34)
[2021-07-22] MEDS: SERTRALINE HCL 50 MG TABLET PO SCH (08:34)
[2021-07-22] MEDS: OMEGA-3/DHA/EPA/FISH OIL 1,000 MG CAPSULE PO SCH (08:34)
[2021-07-22] MEDS ORDERED: DIVA-111 PO (13:20)
== END 2021-07-22 14:20 | disposition home or self-care (01) | DRG 750 ==
LOC: B3A 13:15
PROVIDERS: ADMIT Psychiatry & Neurology Psychiatry; ATTEND Psychiatry & Neurology Psychiatry
DX: F25.9 Schizoaffective disorder, unspecified (principal); Z59.00 Homelessness unspecified; R45.851 Suicidal ideations; F12.10 Cannabis abuse, uncomplicated; I10 Essential (primary) hypertension; G47.00 Insomnia, unspecified; Z20.822 Contact with and (suspected) exposure to COVID-19; K59.00 Constipation, unspecified; F41.9 Anxiety disorder, unspecified; F19.10 Other psychoactive substance abuse, uncomplicated; Z71.51 Drug abuse counseling and surveillance of drug abuser; Z87.891 Personal history of nicotine dependence
CPT/HCPCS: 87081